=== PATIENT | female | born 1950 | race American Indian/Alaskan Native ===

== ENCOUNTER 2016-08-03 09:26 | Outpatient (CLI) | payer OTHER ==
--- NOTE | 2016-08-03 10:38 | Magnetic Resonance Report ---
MRI BRAIN WITHOUT CONTRAST INDICATION: Memory loss, seizure. COMPARISON: None similar at this institution. FINDINGS: Noncontrast multiplanar and multisequence MRI of the brain demonstrates no acute infarct, hemorrhage, mass effect or midline shift. 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 Otherwise unremarkable ventricles and sulci with mild periventricular and few white matter FLAIR and T2 weighted hyperintensities. Cavum velum interpositum incidentally noted. Normal major intracranial vascular flow voids. Left cerebellar old ischemic changes, including 1.5 cm encephalomalacia noted as on axial image 7. Otherwise unremarkable posterior fossa with symmetric seventh and eighth nerve complexes and preserved basilar cisterns. Unremarkable eye globes. Mild bilateral ethmoid sinusitis. Clear remainder imaged paranasal sinuses and mastoid air cells. Normal midline structures without evidence of Chiari malformation. Approximately 3 x 1.5 cm enlarged, slightly heterogeneous adenoids may be directly visualized. CONCLUSION: 1. No acute intracranial MRI abnormality with old infarcts/ischemic changes in the left parietal lobe and left cerebellar hemisphere. Otherwise, mild age-appropriate atrophy microvascular changes also noted. 2. Few other findings, including mild sinusitis and enlarged adenoids. ENT correlation may be obtained, as appropriate. Thank you for the opportunity to participate in this patient's care.
== END 2016-08-03 09:27 | disposition home or self-care (01) ==
LOC: MRI 09:26
PROVIDERS: ATTEND Psychiatry & Neurology Neurology
DX: G40.A19 Absence epileptic syndrome, intractable, without status epilepticus (principal); R41.3 Other amnesia; G93.89 Other specified disorders of brain; J32.2 Chronic ethmoidal sinusitis
CPT/HCPCS: 70551